=== PATIENT | female | born 1935 | race African-American/Black ===

== ENCOUNTER 2018-06-08 13:11 | Emergency (ER) | payer OTHER ==
[~2018-06-08] VITALS: Ht 152.4 cm; Wt 43.0 kg
[~2018-06-08 13:11] MED LIST: LISINOPRIL; SIMVASTATIN
[2018-06-08] MEDS ORDERED: AMLO5TAB88 PO (13:20)
[2018-06-08 14:46] LABS: BASOPHILS % 0.4 % (0.0-2.0); EOSINOPHILS % 0.5 % (0.0-5.0); HEMATOCRIT. 38.8 % (36.0-48.0); LYMPHOCYTES % 17.7 % (20.0-50.0); MEAN CORPUSCULAR HEMOGLOBIN 34.7 pg (28.0-32.0); MEAN CORPUSCULAR VOLUME 103.2 fL (81.0-99.0); MONOCYTES % 4.6 % (2.0-8.0); NEUTROPHILS % 76.8 % (40.0-76.0); PLATELET 209 x1000/uL (130-400); RED BLOOD CELL COUNT 3.76 mill/uL (4.2-5.4); RED CELL DISTRIBUTION WIDTH 14.4 % (11.6-14.6)
[2018-06-08 14:54] LABS: CHLORIDE 100 mEq/L (98-107)
[2018-06-08] MEDS ORDERED: CEFTRIAXONE 1 G PREMIX 50 ML IV ONE (17:30)
[2018-06-08] MEDS ORDERED: SODIUM CHLORIDE 0.9% 1000ML BAG (SEPSIS BOLUS) IV ONE (17:30)
[2018-06-08 17:53] LABS: CLARITY URINE TURBID (CLEAR); COLOR URINE YELLOW (YELLOW); KETONES URINE TRACE (NEGATIVE); LEUKOCYTE ESTERASE URINE 3+ (NEGATIVE); NITRITE URINE NEGATIVE (NEGATIVE); OCCULT BLOOD URINE 2+ (NEGATIVE); PROTEIN URINE 1+ (NEGATIVE); SPECIFIC GRAVITY URINE 1.016 (1.005-1.030)
[2018-06-08 20:31] VITALS: BP 145/90
== END 2018-06-08 21:30 | disposition short-term general hospital (02) ==
LOC: ER 13:11 → EDBEDREQTM 20:54 → EDBEDREQ 20:57 → ER 21:30 → CANBEDREQ 06-09 00:46
DX: R55 Syncope and collapse (principal)
CPT/HCPCS: 36415; 70450; 71045; 80053; 81003; 83605; 83880; 84484; 85025; 87040; 87086; 93005; 96365; 99285; J0696